=== PATIENT | female | born 2000 | race Caucasian/White ===

== ENCOUNTER 2022-05-02 09:12 | Outpatient (REF) | payer OTHER, SELFPAY ==
[2022-05-02 14:37] LABS: TSH reflex Free T4 2.33 uIU/mL (0.32-4.0)
[2022-05-02 15:20] LABS: Alanine Aminotransferase 12 U/L (0-31); Albumin Level 4.6 g/dL (3.5-5.0); Alkaline Phosphatase 48 U/L (39-117); Aspartate Amino Transferase 17 U/L (5-31); Bilirubin Direct 0.2 mg/dL (0.0-0.5); Bilirubin Total 0.3 mg/dL (0.0-1.0); Total Protein 7.3 g/dL (6.5-8.0)
== END 2022-05-02 09:13 | disposition home or self-care (01) ==
LOC: HO.WFDLDS 09:12
PROVIDERS: Visit Provider Hospitalist
DX: Z00.00 Encounter for general adult medical examination without abnormal findings (principal)
CPT/HCPCS: 36415; 80076; 84443